=== PATIENT | male | born 1985 | race Hispanic/Latino ===

== ENCOUNTER 2023-07-09 07:23 | Emergency (ER) | payer OTHER ==
[~2023-07-09] VITALS: Ht 175.3 cm; Wt 85.4 kg
[2023-07-09] MEDS: KETOROLAC 30 MG/ML 1ML VIAL IV ONE (09:39)
[2023-07-09] MEDS: methylPREDNISolone 125MG 2ML VIAL IV ONE (09:39)
[2023-07-09] MEDS ORDERED: CYCL-707 PO (09:40)
[2023-07-09] MEDS: diazePAM 5MG TABLET PO ONE (09:44)
[2023-07-09 11:12] VITALS: BP 131/62; TEMP 98.1; O2SAT 98
[2023-07-09] MEDS ORDERED: NAPR-837 PO (11:30)
[2023-07-09] MEDS ORDERED: METH-1164 PO (11:30)
[2023-07-09] MEDS ORDERED: MEDR4PAK PO (11:30)
[2023-07-09] MEDS ORDERED: IBUP200T46 PO (11:32)
[2023-07-09] MEDS ORDERED: HOME MED LIST COMPLETE! XX SCH (11:35)
== END 2023-07-09 11:41 | disposition home or self-care (01) ==
LOC: M ED 07:23
DX: M54.50 Low back pain, unspecified (principal); M54.31 Sciatica, right side; M51.36 Other intervertebral disc degeneration, lumbar region; M51.26 Other intervertebral disc displacement, lumbar region; Z88.6 Allergy status to analgesic agent; Z79.1 Long term (current) use of non-steroidal anti-inflammatories (NSAID); Z79.899 Other long term (current) drug therapy
CPT/HCPCS: 72148; 96374; 99283; J1885; J2930